=== PATIENT | male | born 1950 | race Caucasian/White ===

== ENCOUNTER 2021-02-04 15:51 | Emergency (ER) | payer MEDICARE ==
[2021-02-04 15:58] VITALS: TEMP 98.1
--- NOTE | 2021-02-04 16:15 | ED ---
General Adult HPI - General Chief complaint: Abdominal Pain Stated complaint: kidney problems Time Seen by Provider: 02/04/21 16:00 Source: patient Mode of arrival: wheelchair Limitations: no limitations - History of Present Illness Initial comments: Dictation was produced using [facility] dictation software. please excuse any grammatical, word or spelling errors. Chief Complaint: This 70-year-old male presents to the emergency department for lower back and bilateral flank pain. History of Present Illness: 70-year-old male presents emergency department for lower back and bilateral flank pain. Patient states that he was at [facility] emergency room for the same complaint one week ago. States that he had imaging done and he was found to have small kidney stones. Patient states that he has pain that goes across his bilateral lower flank areas and lower back. He's been having urinary urgency. Patient has history of prostate disease. Patient also takes Lasix for his heart failure. Patient states that the urge to be has been bothersome because it keeps him awake at night. Is not able to get more than 1-2 hours of straight sleep because he feels like he needs to get up to urinate. Patient denies any nausea. No vomiting. Pain is nonradiating to the groin. Denies any anterior abdominal pain. States that he has history of abdominal aortic aneurysm measuring 3.5 cm. Denies any numbness tingling paresthesias to the lower extremities. The ROS documented in this emergency department record has been reviewed and confirmed by me. Those systems with pertinent positive or negative responses have been documented in the HPI. All other systems are other negative and/or noncontributory. PHYSICAL EXAM: General Impression: Alert and oriented x3, not in acute distress HEENT: Normocephalic atraumatic, extra-ocular movements intact, pupils equal and reactive to light bilaterally, mucous membranes moist. Cardiovascular: Heart regular rate and rhythm Chest: Able to complete full sentences, no retractions, no tachypnea Abdomen: abdomen soft, non-tender, non-distended, no organomegaly Musculoskeletal: Pulses present and equal in all extremities, no peripheral edema Motor: no focal deficits noted Neurological: CN II-XII grossly intact, no focal motor or sensory deficits noted Skin: Intact with no visualized rashes Psych: Normal affect and mood ED course: 70-year-old well-appearing male with multiple comorbid disease presents to the emergency department for bilateral flank pain, lower back pain and urinary urgency. Vital signs upon arrival are within acceptable limits. EKG interpretation: Ventricular rate 47, A. fib, QRS 90, QTC 396. No TN prolongation, no QTC prolongation, no ST or T-wave changes noted. No old EKG for comparison. Overall, this EKG is unremarkable Laboratory evaluation obtained. CBC, metabolic panel is unremarkable. Urinalysis is negative. Ultrasound the kidneys urinary bladder shows no acute processes. Bladder scan showed less than 150 mL of urine postvoid. Patient reevaluated at bedside. Seems to be in stable medical condition. He is well- appearing. Patient's urinary urgency is likely from his Lasix. 640 mg by mouth daily. Patient reevaluated bedside at 6:15 PM findings stable medical condition. He is sitting comfortably on the stretcher. He does not appear to be in any significant distress. Results of patient's lab and imaging studies were told to the patient. At this point there are no high-risk features noted. Patient's well-appearing. He is told to follow-up with his primary care doctor. Patient given some by mouth analgesia to help him sleep tonight for some mild back discomfort. Patient's back pain is likely musculoskeletal - Related Data Home Medications Medication Instructions Recorded Confirmed Aspirin EC [Ecotrin Low Dose] 81 mg PO DAILY 02/04/21 02/04/21 Cholecalciferol [Vitamin D3 (25 25 mcg PO DAILY 02/04/21 02/04/21 Mcg = 1000 Iu)] Ferrous Sulfate [Feosol] 325 mg PO DAILY 02/04/21 02/04/21 Furosemide [Lasix] 40 mg PO DAILY 02/04/21 02/04/21 Insulin Glargine,Hum.rec.anlog 20 unit SQ DAILY 02/04/21 02/04/21 [Lantus Solostar] Insulin Lispro [humaLOG Kwikpen] 10 unit SQ AC-TID PRN 02/04/21 02/04/21 Metoprolol Tartrate [Lopressor] 25 mg PO DAILY 02/04/21 02/04/21 Potassium Chloride ER [K-Dur 10] 10 meq PO DAILY 02/04/21 02/04/21 Ramipril [Altace] 10 mg PO BID 02/04/21 02/04/21 Simvastatin [Zocor] 40 mg PO DAILY 02/04/21 02/04/21 Tamsulosin HCl [Flomax] 0.4 mg PO BID 02/04/21 02/04/21 Warfarin [Coumadin] 2.5 mg PO MOWEFR 02/04/21 02/04/21 Warfarin [Coumadin] 5 mg PO SUTUTHFRSA 02/04/21 02/04/21 amLODIPine [Norvasc] 10 mg PO DAILY 02/04/21 02/04/21 metFORMIN HCL [Glucophage] 850 mg PO BID 02/04/21 02/04/21 Previous Rx's Medication Instructions Recorded HYDROcodone/APAP 5-325MG [[place] 1 tab PO Q6HR PRN 3 Days #12 tab 02/04/21 5-325] Allergies Allergy/AdvReac Type Severity Reaction Status Date / Time No Known Allergies Allergy Verified 02/04/21 17:09 Review of Systems ROS Statement: Those systems with pertinent positive or pertinent negative responses have been documented in the HPI. ROS Other: All systems not noted in ROS Statement are negative. Past Medical History Past Medical History: Atrial Fibrillation, Heart Failure, COPD, Hyperlipidemia, Hypertension History of Any Multi-Drug Resistant Organisms: None Reported Past Surgical History: Joint Replacement Past Psychological History: No Psychological Hx Reported Smoking Status: Current every day smoker Past Alcohol Use History: None Reported Past Drug Use History: None Reported General Exam Limitations: no limitations Course Vital Signs 02/04/21 02/04/21 15:55 16:34 Temperature 98.1 F Pulse Rate 50 L 47 L Respiratory 16 18 Rate Blood Pressure 182/69 145/67 O2 Sat by Pulse 96 96 Oximetry Medical Decision Making - Lab Data Result diagrams: 02/04/21 16:17 02/04/21 16:17 Lab Results 02/04/21 02/04/21 02/04/21 Range/Units 16:17 16:17 16:17 WBC 6.7 (3.8-10.6) k/uL RBC 5.93 H (4.30-5.90) m/uL Hgb 18.1 H (13.0-17.5) gm/dL Hct 54.5 H (39.0-53.0) % MCV 91.8 (80.0-100.0) fL MCH 30.6 (25.0-35.0) pg MCHC 33.3 (31.0-37.0) g/dL RDW 15.5 (11.5-15.5) % Plt Count 168 (150-450) k/uL MPV 7.4 Neutrophils % 74 % Lymphocytes % 17 % Monocytes % 5 % Eosinophils % 2 % Basophils % 1 % Neutrophils # 4.9 (1.3-7.7) k/uL Lymphocytes # 1.1 (1.0-4.8) k/uL Monocytes # 0.3 (0-1.0) k/uL Eosinophils # 0.1 (0-0.7) k/uL Basophils # 0.1 (0-0.2) k/uL Sodium 139 (137-145) mmol/L Potassium 5.0 (3.5-5.1) mmol/L Chloride 110 H (98-107) mmol/L Carbon Dioxide 21 L (22-30) mmol/L Anion Gap 8 mmol/L BUN 33 H (9-20) mg/dL Creatinine 1.37 H (0.66-1.25) mg/dL Est GFR (CKD-EPI)AfAm 60 (>60 ml/min/1.73 sqM) Est GFR (CKD-EPI)NonAf 52 (>60 ml/min/1.73 sqM) Glucose 134 H (74-99) mg/dL Calcium 10.1 (8.4-10.2) mg/dL Total Bilirubin 0.9 (0.2-1.3) mg/dL AST 23 (17-59) U/L ALT 12 (4-49) U/L Alkaline Phosphatase 92 (38-126) U/L Total Protein 7.0 (6.3-8.2) g/dL Albumin 4.2 (3.5-5.0) g/dL Lipase 177 (23-300) U/L Urine Color Yellow Urine Appearance Clear (Clear) Urine pH 5.5 (5.0-8.0) Ur Specific [place] 1.018 (1.001-1.035) Urine Protein 2+ H (Negative) Urine Glucose (UA) Trace H (Negative) Urine Ketones Negative (Negative) Urine Blood Trace H (Negative) Urine Nitrite Negative (Negative) Urine Bilirubin Negative (Negative) Urine Urobilinogen <2.0 (<2.0) mg/dL Ur Leukocyte Esterase Negative (Negative) Urine RBC 1 (0-5) /hpf Urine WBC <1 (0-5) /hpf Urine Mucus Rare H (None) /hpf Disposition Clinical Impression: Back pain Disposition: HOME SELF-CARE Condition: Good Instructions (If sedation given, give patient instructions): Low Back Strain (ED) Prescriptions: HYDROcodone/APAP 5-325MG [[place] 5-325] 1 tab PO Q6HR PRN 3 Days #12 tab PRN Reason: Severe Pain Is patient prescribed a controlled substance at d/c from ED?: Yes Referrals: Carol Ahn MD [Primary Care Provider] - 1-2 days
[2021-02-04 16:36] VITALS: RESP 18
[2021-02-04 16:44] LABS: Basophils # (A) 0.1 k/uL (0-0.2); Basophils % (A) 1 %; Eosinophils # (A) 0.1 k/uL (0-0.7); Eosinophils % (A) 2 %; HCT 54.5 % (39.0-53.0); HGB 18.1 gm/dL (13.0-17.5); Lymphocytes # (A) 1.1 k/uL (1.0-4.8); Lymphocytes % (A) 17 %; MCH 30.6 pg (25.0-35.0); MCHC 33.3 g/dL (31.0-37.0); MCV 91.8 fL (80.0-100.0); Mean Platelet Volume 7.4; Monocytes # (A) 0.3 k/uL (0-1.0); Monocytes % (A) 5 %; Neutrophils # (A) 4.9 k/uL (1.3-7.7); Neutrophils % (A) 74 %; Platelet Count 168 k/uL (150-450); RBC 5.93 m/uL (4.30-5.90); RDW 15.5 % (11.5-15.5); WBC 6.7 k/uL (3.8-10.6)
[2021-02-04 16:48] LABS: Appearance,Urine Clear (Clear); Bilirubin,Urine Negative (Negative); Blood,Urine Trace (Negative); Color,Urine Yellow; Glucose,Urine (UA) Trace (Negative); Ketones,Urine Negative (Negative); Leukocyte Esterase,Urine Negative (Negative); Mucus,Urine Rare /hpf; Nitrite,Urine Negative (Negative); PH, Urine 5.5 (5.0-8.0); Protein,Urine 2+ (Negative); RBC,Urine 1 /hpf (0-5); Specific Gravity,Urine 1.018 (1.001-1.035); Urobilinogen,Urine <2.0 mg/dL (<2.0); WBC,Urine <1 /hpf (0-5)
[2021-02-04 16:56] LABS: Albumin 4.2 g/dL (3.5-5.0); Calcium 10.1 mg/dL (8.4-10.2); Total Bilirubin 0.9 mg/dL (0.2-1.3)
--- NOTE | 2021-02-04 18:02 | US ---
EXAMINATION TYPE: US kidneys/renal and bladder DATE OF EXAM: 02/04/2021 COMPARISON: NONE CLINICAL HISTORY: flank pain. Flank pain EXAM MEASUREMENTS: Right Kidney: 12.0 x 5.1 x 4.3 cm Left Kidney: 12.9 x 4.5 x 4.1 cm Right Kidney: Cystic area lower pole 1.8 x 1.7 x 1.5 cm. Left Kidney: Cystic area lower pole 1.4 x 1.2 x 1.4 cm mid pole 1.9 x 1.8 x 2.4 cm. Bladder: Not full Bilateral Jets seen: No IMPRESSION: There are renal cortical cysts. No evidence of a solid renal mass. No hydronephrosis. Urinary bladder not evaluated. Bladder was empty.
[2021-02-04] MEDS ORDERED: ACET/COD 300 MG/30 MG STARTER PACK 6 TAB BTL PO STA (18:50)
[2021-02-04 18:52] VITALS: BP 137/93; PULSE 44
== END 2021-02-04 19:03 | disposition home or self-care (01) ==
LOC: EC 15:51
DX: M54.5 Low back pain (principal); R10.9 Unspecified abdominal pain; E78.5 Hyperlipidemia, unspecified; F17.200 Nicotine dependence, unspecified, uncomplicated; I11.0 Hypertensive heart disease with heart failure; I50.9 Heart failure, unspecified; J44.9 Chronic obstructive pulmonary disease, unspecified; I48.91 Unspecified atrial fibrillation; Z79.01 Long term (current) use of anticoagulants; Z79.82 Long term (current) use of aspirin; Z79.899 Other long term (current) drug therapy
CPT/HCPCS: 36415; 51798; 76770; 80053; 81001; 83690; 85025; 93005; 99284

== ENCOUNTER 2021-02-25 21:15 | Emergency (ER) | payer MEDICARE ==
[2021-02-25 21:32] VITALS: TEMP 99.3
--- NOTE | 2021-02-25 21:50 | ED ---
SOB HPI - General Chief Complaint: Shortness of Breath Stated Complaint: SOB Time Seen by Provider: 02/25/21 21:26 Source: patient Mode of arrival: ambulatory Limitations: no limitations - History of Present Illness Initial Comments: 70-year-old male patient with multiple medical problems presents to the emergency department today for evaluation of shortness of breath. Patient states that worsening over the last couple of days. States that he has been unable to sleep. States he does have a cough with sputum production. He is unsure of the color. Denies any hemoptysis. States he has had fevers over the last couple of days. Denies any increase in leg swelling. Does admit that he did stop taking his Lasix 2 days ago because it makes him go to the bathroom all night long. Denies any chest pain. States he has had some palpitations so this is not unusual for him with his history of atrial fibrillation. Denies nausea or vomiting. Denies dizziness or weakness. Patient denies any recent rash, abdominal pain, diarrhea, constipation, back pain, numbness, tingling, hematuria, dysuria, urinary urgency, urinary frequency, headache, visual c hanges, or any other complaints. - Related Data Home Medications Medication Instructions Recorded Confirmed Aspirin EC [Ecotrin Low Dose] 81 mg PO DAILY 02/04/21 02/25/21 Cholecalciferol [Vitamin D3 (25 25 mcg PO DAILY 02/04/21 02/25/21 Mcg = 1000 Iu)] Ferrous Sulfate [Feosol] 325 mg PO DAILY 02/04/21 02/25/21 Furosemide [Lasix] 40 mg PO DAILY 02/04/21 02/25/21 Insulin Glargine,Hum.rec.anlog 15 unit SQ DAILY 02/04/21 02/25/21 [Lantus Solostar] Insulin Lispro [humaLOG Kwikpen] 10 unit SQ AC-TID PRN 02/04/21 02/25/21 Potassium Chloride ER [K-Dur 10] 10 meq PO DAILY 02/04/21 02/25/21 Ramipril [Altace] 10 mg PO BID 02/04/21 02/25/21 Simvastatin [Zocor] 40 mg PO DAILY 02/04/21 02/25/21 Tamsulosin HCl [Flomax] 0.4 mg PO BID 02/04/21 02/25/21 Warfarin [Coumadin] 2.5 mg PO MOWEFR 02/04/21 02/25/21 Warfarin [Coumadin] 5 mg PO SUTUTHSA 02/04/21 02/25/21 amLODIPine [Norvasc] 10 mg PO DAILY 02/04/21 02/25/21 metFORMIN HCL [Glucophage] 850 mg PO BID 02/04/21 02/25/21 Metoprolol Succinate (ER) [Toprol 25 mg PO DAILY 02/25/21 02/25/21 Xl] Allergies Allergy/AdvReac Type Severity Reaction Status Date / Time No Known Allergies Allergy Verified 02/25/21 22:56 Review of Systems ROS Statement: Those systems with pertinent positive or pertinent negative responses have been documented in the HPI. ROS Other: All systems not noted in ROS Statement are negative. Past Medical History Past Medical History: Atrial Fibrillation, Heart Failure, COPD, Hyperlipidemia, Hypertension History of Any Multi-Drug Resistant Organisms: None Reported Past Surgical History: Joint Replacement Past Psychological History: No Psychological Hx Reported Smoking Status: Current every day smoker Past Alcohol Use History: None Reported Past Drug Use History: None Reported General Exam Limitations: no limitations General appearance: alert, in no apparent distress, other (This is a well- developed, well-nourished adult male patient in no acute distress. Vital signs upon presentation are temperature 99.3F, pulse 69, respirations 20, blood pressure 179/67, pulse ox 95% on room air.) ENT exam: Present: normal exam, normal oropharynx, mucous membranes moist Respiratory exam: Present: normal lung sounds bilaterally. Absent: respiratory distress, wheezes, rales, rhonchi, stridor Cardiovascular Exam: Present: regular rate, normal rhythm, normal heart sounds. Absent: systolic murmur, diastolic murmur, rubs, gallop, clicks GI/Abdominal exam: Present: soft, normal bowel sounds. Absent: distended, tenderness, guarding, rebound, rigid Neurological exam: Present: alert, oriented X3, CN II-XII intact Psychiatric exam: Present: normal affect, normal mood Skin exam: Present: warm, dry, intact, normal color. Absent: rash Course Vital Signs 02/25/21 02/25/21 02/25/21 21:26 21:49 22:12 Temperature 99.3 F Pulse Rate 69 61 Pulse Rate [ 75 [employer] ] Respiratory 20 20 20 Rate Blood Pressure 179/67 182/91 O2 Sat by Pulse 95 95 Oximetry 02/25/21 23:11 Temperature Pulse Rate 60 Pulse Rate [ Information [employer] ] Respiratory 18 Rate Blood Pressure 168/72 O2 Sat by Pulse 96 Oximetry Medical Decision Making - Medical Decision Making 70-year-old male patient presents to the emergency department today for evaluation of increased shortness of breath over the last couple of days. Physical examination reveals clear equal lung sounds. He is in no respiratory distress. Labs reviewed and did reveal white blood cell count is 6.9. INR is 2.1 which is therapeutic for him. Carbon dioxide was 20. BUN 33, creatinine 1.35 which is consistent with his usual kidney function. Lactic acid was 2.6. Troponin is negative. BNP is 949. Urinalysis shows no sign of infection. He did test negative for COVID-19. Chest x-ray showed no acute abnormalities. I did discuss findings and results with the patient. He will be discharged home. He is instructed to repeat start his Lasix his recommended dose. Instructed to follow-up with his primary care physician for recheck in 1-2 days. Return parameters discussed in detail. He verbalizes understanding and agrees with this plan. Tylenol codeine started back was given for his chronic back pain. Case discussed with my attending Dr. Shen. - Lab Data Result diagrams: 02/25/21 22:03 02/25/21 22:03 Lab Results 02/25/21 02/25/21 02/25/21 Range/Units 21:49 22:03 22:03 WBC 6.9 (3.8-10.6) k/uL RBC 5.83 (4.30-5.90) m/uL Hgb 17.9 H (13.0-17.5) gm/dL Hct 54.6 H (39.0-53.0) % MCV 93.6 (80.0-100.0) fL MCH 30.7 (25.0-35.0) pg MCHC 32.7 (31.0-37.0) g/dL RDW 15.4 (11.5-15.5) % Plt Count 134 L (150-450) k/uL MPV 7.3 Neutrophils % 69 % Lymphocytes % 17 % Monocytes % 8 % Eosinophils % 3 % Basophils % 1 % Neutrophils # 4.7 (1.3-7.7) k/uL Lymphocytes # 1.2 (1.0-4.8) k/uL Monocytes # 0.6 (0-1.0) k/uL Eosinophils # 0.2 (0-0.7) k/uL Basophils # 0.1 (0-0.2) k/uL Hypochromasia Slight PT 20.5 H (9.0-12.0) sec INR 2.1 H (<1.2) APTT 29.4 (22.0-30.0) sec Sodium (137-145) mmol/L Potassium (3.5-5.1) mmol/L Chloride (98-107) mmol/L Carbon Dioxide (22-30) mmol/L Anion Gap mmol/L BUN (9-20) mg/dL Creatinine (0.66-1.25) mg/dL Est GFR (CKD-EPI)AfAm (>60 ml/min/1.73 sqM) Est GFR (CKD-EPI)NonAf (>60 ml/min/1.73 sqM) Glucose (74-99) mg/dL Plasma Lactic Acid Ezekiel (0.7-2.0) mmol/L Calcium (8.4-10.2) mg/dL Magnesium (1.6-2.3) mg/dL Total Bilirubin (0.2-1.3) mg/dL AST (17-59) U/L ALT (4-49) U/L Alkaline Phosphatase (38-126) U/L Troponin I (0.000-0.034) ng/mL NT-Pro-B Natriuret Pep pg/mL Total Protein (6.3-8.2) g/dL Albumin (3.5-5.0) g/dL Urine Color Urine Appearance (Clear) Urine pH (5.0-8.0) Ur Specific [place] (1.001-1.035) Urine Protein (Negative) Urine Glucose (UA) (Negative) Urine Ketones (Negative) Urine Blood (Negative) Urine Nitrite (Negative) Urine Bilirubin (Negative) Urine Urobilinogen (<2.0) mg/dL Ur Leukocyte Esterase (Negative) Urine RBC (0-5) /hpf Urine WBC (0-5) /hpf Ur Squamous Epith Cells (0-4) /hpf Amorphous Sediment (None) /hpf Urine Bacteria (None) /hpf Hyaline Casts (0-2) /lpf Urine Mucus (None) /hpf Coronavirus (PCR) Not Detected (Not Detectd) 02/25/21 02/25/21 02/25/21 Range/Units 22:03 22:03 22:03 WBC (3.8-10.6) k/uL RBC (4.30-5.90) m/uL Hgb (13.0-17.5) gm/dL Hct (39.0-53.0) % MCV (80.0-100.0) fL MCH (25.0-35.0) pg MCHC (31.0-37.0) g/dL RDW (11.5-15.5) % Plt Count (150-450) k/uL MPV Neutrophils % % Lymphocytes % % Monocytes % % Eosinophils % % Basophils % % Neutrophils # (1.3-7.7) k/uL Lymphocytes # (1.0-4.8) k/uL Monocytes # (0-1.0) k/uL Eosinophils # (0-0.7) k/uL Basophils # (0-0.2) k/uL Hypochromasia PT (9.0-12.0) sec INR (<1.2) APTT (22.0-30.0) sec Sodium 142 (137-145) mmol/L Potassium 5.0 (3.5-5.1) mmol/L Chloride 111 H (98-107) mmol/L Carbon Dioxide 20 L (22-30) mmol/L Anion Gap 11 mmol/L BUN 33 H (9-20) mg/dL Creatinine 1.35 H (0.66-1.25) mg/dL Est GFR (CKD-EPI)AfAm 61 (>60 ml/min/1.73 sqM) Est GFR (CKD-EPI)NonAf 52 (>60 ml/min/1.73 sqM) Glucose 108 H (74-99) mg/dL Plasma Lactic Acid Ezekiel 2.6 H* (0.7-2.0) mmol/L Calcium 10.1 (8.4-10.2) mg/dL Magnesium 1.8 (1.6-2.3) mg/dL Total Bilirubin 0.8 (0.2-1.3) mg/dL AST 24 (17-59) U/L ALT 12 (4-49) U/L Alkaline Phosphatase 73 (38-126) U/L Troponin I <0.012 (0.000-0.034) ng/mL NT-Pro-B Natriuret Pep pg/mL Total Protein 6.6 (6.3-8.2) g/dL Albumin 4.0 (3.5-5.0) g/dL Urine Color Urine Appearance (Clear) Urine pH (5.0-8.0) Ur Specific [place] (1.001-1.035) Urine Protein (Negative) Urine Glucose (UA) (Negative) Urine Ketones (Negative) Urine Blood (Negative) Urine Nitrite (Negative) Urine Bilirubin (Negative) Urine Urobilinogen (<2.0) mg/dL Ur Leukocyte Esterase (Negative) Urine RBC (0-5) /hpf Urine WBC (0-5) /hpf Ur Squamous Epith Cells (0-4) /hpf Amorphous Sediment (None) /hpf Urine Bacteria (None) /hpf Hyaline Casts (0-2) /lpf Urine Mucus (None) /hpf Coronavirus (PCR) (Not Detectd) 02/25/21 02/25/21 Range/Units 22:03 23:15 WBC (3.8-10.6) k/uL RBC (4.30-5.90) m/uL Hgb (13.0-17.5) gm/dL Hct (39.0-53.0) % MCV (80.0-100.0) fL MCH (25.0-35.0) pg MCHC (31.0-37.0) g/dL RDW (11.5-15.5) % Plt Count (150-450) k/uL MPV Neutrophils % % Lymphocytes % % Monocytes % % Eosinophils % % Basophils % % Neutrophils # (1.3-7.7) k/uL Lymphocytes # (1.0-4.8) k/uL Monocytes # (0-1.0) k/uL Eosinophils # (0-0.7) k/uL Basophils # (0-0.2) k/uL Hypochromasia PT (9.0-12.0) sec INR (<1.2) APTT (22.0-30.0) sec Sodium (137-145) mmol/L Potassium (3.5-5.1) mmol/L Chloride (98-107) mmol/L Carbon Dioxide (22-30) mmol/L Anion Gap mmol/L BUN (9-20) mg/dL Creatinine (0.66-1.25) mg/dL Est GFR (CKD-EPI)AfAm (>60 ml/min/1.73 sqM) Est GFR (CKD-EPI)NonAf (>60 ml/min/1.73 sqM) Glucose (74-99) mg/dL Plasma Lactic Acid [place] (0.7-2.0) mmol/L Calcium (8.4-10.2) mg/dL Magnesium (1.6-2.3) mg/dL Total Bilirubin (0.2-1.3) mg/dL AST (17-59) U/L ALT (4-49) U/L Alkaline Phosphatase (38-126) U/L Troponin I (0.000-0.034) ng/mL NT-Pro-B Natriuret Pep 949 pg/mL Total Protein (6.3-8.2) g/dL Albumin (3.5-5.0) g/dL Urine Color Yellow Urine Appearance Clear (Clear) Urine pH 5.5 (5.0-8.0) Ur Specific [place] 1.020 (1.001-1.035) Urine Protein 3+ H (Negative) Urine Glucose (UA) 1+ H (Negative) Urine Ketones Negative (Negative) Urine Blood Small H (Negative) Urine Nitrite Negative (Negative) Urine Bilirubin Negative (Negative) Urine Urobilinogen <2.0 (<2.0) mg/dL Ur Leukocyte Esterase Negative (Negative) Urine RBC 3 (0-5) /hpf Urine WBC <1 (0-5) /hpf Ur Squamous Epith Cells <1 (0-4) /hpf Amorphous Sediment Rare H (None) /hpf Urine Bacteria Rare H (None) /hpf Hyaline Casts 19 H (0-2) /lpf Urine Mucus Rare H (None) /hpf Coronavirus (PCR) (Not Detectd) - Radiology Data Radiology results: report reviewed, image reviewed Two-view x-ray of the chest is obtained. Report was reviewed in its entirety. Impression by Dr. Tobar shows cardiomegaly. Mild pulmonary fibrosis. No gross or failure. Disposition Clinical Impression: Shortness of breath Disposition: HOME SELF-CARE Condition: Good Instructions (If sedation given, give patient instructions): Shortness of Breath (ED) Additional Instructions: Restart your Lasix. Follow-up with your primary care physician for recheck in 1-2 days. Return to the emergency department for any new, worsening, or concerning symptoms. Is patient prescribed a controlled substance at d/c from ED?: No Referrals: Carol Ahn MD [Primary Care Provider] - 1-2 days Time of Disposition: 23:43
--- NOTE | 2021-02-25 22:14 | XR ---
EXAMINATION TYPE: XR chest 2V DATE OF EXAM: 02/25/2021 COMPARISON: NONE HISTORY: Short of breath TECHNIQUE: 2 views FINDINGS: Heart is enlarged. There is coarsening of the lung markings. There is no gross heart failur e. Bony thorax is intact. There is no pleural effusion. There are chest leads. IMPRESSION: Cardiomegaly. Mild pulmonary fibrosis. No gross heart failure.
[2021-02-25 22:21] LABS: Basophils # (A) 0.1 k/uL (0-0.2); Basophils % (A) 1 %; Eosinophils # (A) 0.2 k/uL (0-0.7); Eosinophils % (A) 3 %; HCT 54.6 % (39.0-53.0); HGB 17.9 gm/dL (13.0-17.5); Hypochromasia Slight; Lymphocytes # (A) 1.2 k/uL (1.0-4.8); Lymphocytes % (A) 17 %; MCH 30.7 pg (25.0-35.0); MCHC 32.7 g/dL (31.0-37.0); MCV 93.6 fL (80.0-100.0); Mean Platelet Volume 7.3; Monocytes # (A) 0.6 k/uL (0-1.0); Monocytes % (A) 8 %; Neutrophils # (A) 4.7 k/uL (1.3-7.7); Neutrophils % (A) 69 %; Platelet Count 134 k/uL (150-450); RBC 5.83 m/uL (4.30-5.90); RDW 15.4 % (11.5-15.5); WBC 6.9 k/uL (3.8-10.6)
[2021-02-25 22:33] LABS: Calcium 10.1 mg/dL (8.4-10.2); Magnesium 1.8 mg/dL (1.6-2.3); Total Bilirubin 0.8 mg/dL (0.2-1.3); Total Protein 6.6 g/dL (6.3-8.2)
[2021-02-25 22:35] LABS: INR 2.1 (<1.2); Partial Thromboplastin Time 29.4 sec (22.0-30.0); Prothrombin Time 20.5 sec (9.0-12.0)
[2021-02-25 23:15] VITALS: BP 168/72; PULSE 60; RESP 18
[2021-02-25 23:42] LABS: Amorphous Sediment,Urine Rare /hpf; Appearance,Urine Clear (Clear); Bacteria,Urine Rare /hpf; Bilirubin,Urine Negative (Negative); Blood,Urine Small (Negative); Color,Urine Yellow; Glucose,Urine (UA) 1+ (Negative); Hyaline Casts,Urine 19 /lpf (0-2); Ketones,Urine Negative (Negative); Leukocyte Esterase,Urine Negative (Negative); Mucus,Urine Rare /hpf; Nitrite,Urine Negative (Negative); PH, Urine 5.5 (5.0-8.0); Protein,Urine 3+ (Negative); RBC,Urine 3 /hpf (0-5); Squamous Epithelial Cell,Urine <1 /hpf (0-4); Urobilinogen,Urine <2.0 mg/dL (<2.0); WBC,Urine <1 /hpf (0-5)
[2021-02-25] MEDS ORDERED: ACET/COD 300 MG/30 MG STARTER PACK 6 TAB BTL PO STA (23:45)
== END 2021-02-25 23:59 | disposition home or self-care (01) ==
LOC: EC 21:15
DX: R06.02 Shortness of breath (principal); R05 Cough; F17.200 Nicotine dependence, unspecified, uncomplicated; I11.0 Hypertensive heart disease with heart failure; J44.9 Chronic obstructive pulmonary disease, unspecified; I50.9 Heart failure, unspecified; I48.91 Unspecified atrial fibrillation; E78.5 Hyperlipidemia, unspecified; Z20.822 Contact with and (suspected) exposure to COVID-19; Z79.82 Long term (current) use of aspirin; Z79.899 Other long term (current) drug therapy
CPT/HCPCS: 36415; 71046; 80053; 81001; 83605; 83735; 83880; 84484; 85025; 85610; 85730; 87040; 87635; 93005; 99285

== ENCOUNTER 2021-04-01 18:20 | Emergency (ER) | payer MEDICARE ==
[2021-04-01 18:34] VITALS: BP 149/76
--- NOTE | 2021-04-01 18:51 | ED ---
General Adult HPI - General Chief complaint: Weakness Stated complaint: abd pain, weakness & SOB Time Seen by Provider: 04/01/21 18:37 Source: patient Mode of arrival: wheelchair Limitations: no limitations - History of Present Illness Initial comments: Dictation was produced using [employer] dictation software. please excuse any grammatical, word or spelling errors. Chief Complaint: 71-year-old male presents to the emergency department for cough, shortness of breath and abdominal pain History of Present Illness: 71-year-old male who lives at home by himself. He states that he has no trouble taking care of himself. He states that over the last couple days she's been having increased productive cough, shortness of breath and generalized weakness. Patient states that also he has some mild abdominal pain. He states that he gets alternating bouts of diarrhea and constipation. States that he does not have any abdominal pain currently. Patient states he has a history of 3.5 cm aneurysm. Denies any fever. States his cough is white. Denies any chest pain. Patient is waiting to be evaluated and treated for sleep apnea. States that he is having difficulty sleeping the last couple days. The ROS documented in this emergency department record has been reviewed and confirmed by me. Those systems with pertinent positive or negative responses have been documented in the HPI. All other systems are other negative and/or noncontributory. PHYSICAL EXAM: General Impression: Alert and oriented x3, not in acute distress HEENT: Normocephalic atraumatic, extra-ocular movements intact, pupils equal and reactive to light bilaterally, mucous membranes moist. Cardiovascular: Heart regular rate and rhythm Chest: Able to complete full sentences, no retractions, no tachypnea, lungs clear to auscultation bilaterally Abdomen: abdomen soft, non-tender, non-distended, no organomegaly Musculoskeletal: Pulses present and equal in all extremities, no peripheral edema Motor: no focal deficits noted Neurological: CN II-XII grossly intact, no focal motor or sensory deficits noted Skin: Intact with no visualized rashes Psych: Normal affect and mood ED course: 71-year-old male presents emergency department for multiple compl aints. His complaints include respiratory infectious symptoms, abdominal pain concerning for constipation and insomnia. As upon arrival are within acceptable limits. Patient's well-appearing at the bedside. His lungs are clear to auscultation bilaterally. EKG interpretation: Ventricular rate 50, A. fib, QRS 90, QTC 418. No WA prolongation, no QTC prolongation, no ST or T-wave changes noted. EKG compared to 02/25/2021 showing no changes. Overall, this EKG is unremarkable Laboratory evaluation obtained. Hemoconcentration. Patient is a COPD or. Coag panel shows an of 2.0. Metabolic panel within acceptable limits. Patient positive for coronavirus. Patient's symptoms have been less than 10 days. He meets criteria for monoclonal antibody administration. He is not hypoxic and is vaccinated. Ambulatory pulse ox is 98%. Patient will be given monoclonal antibody infusion, observed for one hour and discharged. - Related Data Home Medications Medication Instructions Recorded Confirmed Aspirin EC [Ecotrin Low Dose] 81 mg PO DAILY 02/04/21 02/25/21 Cholecalciferol [Vitamin D3 (25 25 mcg PO DAILY 02/04/21 02/25/21 Mcg = 1000 Iu)] Ferrous Sulfate [Feosol] 325 mg PO DAILY 02/04/21 02/25/21 Furosemide [Lasix] 40 mg PO DAILY 02/04/21 02/25/21 Insulin Glargine,Hum.rec.anlog 15 unit SQ DAILY 02/04/21 02/25/21 [Lantus Solostar] Insulin Lispro [humaLOG Kwikpen] 10 unit SQ AC-TID PRN 02/04/21 02/25/21 Potassium Chloride ER [K-Dur 10] 10 meq PO DAILY 02/04/21 02/25/21 Ramipril [Altace] 10 mg PO BID 02/04/21 02/25/21 Simvastatin [Zocor] 40 mg PO DAILY 02/04/21 02/25/21 Tamsulosin HCl [Flomax] 0.4 mg PO BID 02/04/21 02/25/21 Warfarin [Coumadin] 2.5 mg PO MOWEFR 02/04/21 02/25/21 Warfarin [Coumadin] 5 mg PO SUTUTHSA 02/04/21 02/25/21 amLODIPine [Norvasc] 10 mg PO DAILY 02/04/21 02/25/21 metFORMIN HCL [Glucophage] 850 mg PO BID 02/04/21 02/25/21 Metoprolol Succinate (ER) [Toprol 25 mg PO DAILY 02/25/21 02/25/21 Xl] Allergies Allergy/AdvReac Type Severity Reaction Status Date / Time No Known Allergies Allergy Verified 04/01/21 18:31 Review of Systems ROS Statement: Those systems with pertinent positive or pertinent negative responses have been documented in the HPI. ROS Other: All systems not noted in ROS Statement are negative. Past Medical History Past Medical History: Atrial Fibrillation, Heart Failure, COPD, Hyperlipidemia, Hypertension History of Any Multi-Drug Resistant Organisms: None Reported Past Surgical History: Joint Replacement Past Psychological History: No Psychological Hx Reported Smoking Status: Current every day smoker Past Alcohol Use History: None Reported Past Drug Use History: None Reported General Exam Limitations: no limitations Course Vital Signs 04/01/21 18:31 Temperature 98.6 F Pulse Rate 70 Respiratory 18 Rate Blood Pressure 149/76 O2 Sat by Pulse 97 Oximetry Medical Decision Making - Lab Data Result diagrams: 04/01/21 19:03 04/01/21 19:03 Lab Results 04/01/21 04/01/21 04/01/21 Range/Units 19:03 19:03 19:03 WBC 3.9 (3.8-10.6) k/uL RBC 5.94 H (4.30-5.90) m/uL Hgb 17.9 H (13.0-17.5) gm/dL Hct 54.8 H (39.0-53.0) % MCV 92.2 (80.0-100.0) fL MCH 30.1 (25.0-35.0) pg MCHC 32.6 (31.0-37.0) g/dL RDW 14.2 (11.5-15.5) % Plt Count 102 L (150-450) k/uL MPV 7.7 Neutrophils % 60 % Lymphocytes % 24 % Monocytes % 10 % Eosinophils % 4 % Basophils % 1 % Neutrophils # 2.3 (1.3-7.7) k/uL Lymphocytes # 0.9 L (1.0-4.8) k/uL Monocytes # 0.4 (0-1.0) k/uL Eosinophils # 0.2 (0-0.7) k/uL Basophils # 0.0 (0-0.2) k/uL PT (9.0-12.0) sec INR (<1.2) APTT (22.0-30.0) sec Sodium 141 (137-145) mmol/L Potassium 5.0 (3.5-5.1) mmol/L Chloride 110 H (98-107) mmol/L Carbon Dioxide 22 (22-30) mmol/L Anion Gap 9 mmol/L BUN 27 H (9-20) mg/dL Creatinine 1.39 H (0.66-1.25) mg/dL Est GFR (CKD-EPI)AfAm 58 (>60 ml/min/1.73 sqM) Est GFR (CKD-EPI)NonAf 50 (>60 ml/min/1.73 sqM) Glucose 94 (74-99) mg/dL Calcium 9.5 (8.4-10.2) mg/dL Magnesium 1.8 (1.6-2.3) mg/dL Total Bilirubin 0.9 (0.2-1.3) mg/dL AST 27 (17-59) U/L ALT 16 (4-49) U/L Alkaline Phosphatase 92 (38-126) U/L Troponin I (0.000-0.034) ng/mL NT-Pro-B Natriuret Pep pg/mL Total Protein 6.7 (6.3-8.2) g/dL Albumin 3.7 (3.5-5.0) g/dL Lipase 173 (23-300) U/L Influenza Type A (PCR) Not Detected (Not Detectd) Influenza Type B (PCR) Not Detected (Not Detectd) RSV (PCR) Not Detected (Not Detectd) SARS-CoV-2 (PCR) Detected A (Not Detectd) 04/01/21 04/01/21 04/01/21 Range/Units 19:03 19:03 19:03 WBC (3.8-10.6) k/uL RBC (4.30-5.90) m/uL Hgb (13.0-17.5) gm/dL Hct (39.0-53.0) % MCV (80.0-100.0) fL MCH (25.0-35.0) pg MCHC (31.0-37.0) g/dL RDW (11.5-15.5) % Plt Count (150-450) k/uL MPV Neutrophils % % Lymphocytes % % Monocytes % % Eosinophils % % Basophils % % Neutrophils # (1.3-7.7) k/uL Lymphocytes # (1.0-4.8) k/uL Monocytes # (0-1.0) k/uL Eosinophils # (0-0.7) k/uL Basophils # (0-0.2) k/uL PT 19.3 H (9.0-12.0) sec INR 2.0 H (<1.2) APTT 31.5 H (22.0-30.0) sec Sodium (137-145) mmol/L Potassium (3.5-5.1) mmol/L Chloride (98-107) mmol/L Carbon Dioxide (22-30) mmol/L Anion Gap mmol/L BUN (9-20) mg/dL Creatinine (0.66-1.25) mg/dL Est GFR (CKD-EPI)AfAm (>60 ml/min/1.73 sqM) Est GFR (CKD-EPI)NonAf (>60 ml/min/1.73 sqM) Glucose (74-99) mg/dL Calcium (8.4-10.2) mg/dL Magnesium (1.6-2.3) mg/dL Total Bilirubin (0.2-1.3) mg/dL AST (17-59) U/L ALT (4-49) U/L Alkaline Phosphatase (38-126) U/L Troponin I 0.017 (0.000-0.034) ng/mL NT-Pro-B Natriuret Pep 656 pg/mL Total Protein (6.3-8.2) g/dL Albumin (3.5-5.0) g/dL Lipase (23-300) U/L Influenza Type A (PCR) (Not Detectd) Influenza Type B (PCR) (Not Detectd) RSV (PCR) (Not Detectd) SARS-CoV-2 (PCR) (Not Detectd) Disposition Clinical Impression: Coronavirus infection Disposition: HOME SELF-CARE Condition: Good Instructions (If sedation given, give patient instructions): Coronavirus Disease 2019 (COVID-19) Is patient prescribed a controlled substance at d/c from ED?: No Referrals: Carol Ahn MD [Primary Care Provider] - 1-2 days
[2021-04-01 19:26] LABS: Basophils % (A) 1 %; Eosinophils # (A) 0.2 k/uL (0-0.7); Eosinophils % (A) 4 %; HCT 54.8 % (39.0-53.0); HGB 17.9 gm/dL (13.0-17.5); Lymphocytes # (A) 0.9 k/uL (1.0-4.8); Lymphocytes % (A) 24 %; MCH 30.1 pg (25.0-35.0); MCHC 32.6 g/dL (31.0-37.0); MCV 92.2 fL (80.0-100.0); Mean Platelet Volume 7.7; Monocytes # (A) 0.4 k/uL (0-1.0); Monocytes % (A) 10 %; Neutrophils # (A) 2.3 k/uL (1.3-7.7); Neutrophils % (A) 60 %; Platelet Count 102 k/uL (150-450); RBC 5.94 m/uL (4.30-5.90); RDW 14.2 % (11.5-15.5); WBC 3.9 k/uL (3.8-10.6)
[2021-04-01 19:32] LABS: Albumin 3.7 g/dL (3.5-5.0); Calcium 9.5 mg/dL (8.4-10.2); Magnesium 1.8 mg/dL (1.6-2.3); Total Bilirubin 0.9 mg/dL (0.2-1.3); Total Protein 6.7 g/dL (6.3-8.2)
[2021-04-01 19:50] LABS: Partial Thromboplastin Time 31.5 sec (22.0-30.0); Prothrombin Time 19.3 sec (9.0-12.0)
--- NOTE | 2021-04-01 20:17 | XR ---
EXAMINATION TYPE: XR abdomen acute w cxr DATE OF EXAM: 04/01/2021 COMPARISON: NONE HISTORY: Abdominal pain TECHNIQUE: 4 views FINDINGS: Heart is normal. Lungs are clear of infiltrate. There is no heart failure. There are no hil ar masses. Costophrenic angles are clear. Bowel gas pattern is normal. There is no sign of intestinal obstruction or pneumoperitoneum. Fecal pa ttern is normal. There is no evidence of a mass. There are no pathologic calcifications over the kidn eys. There is electrical device over the right sacroiliac joint. IMPRESSION: Nonacute abdomen.
[2021-04-01] MEDS ORDERED: SODIUM CHLORIDE 0.9% 50 ML IVPB ONE (20:45)
[2021-04-01] MEDS ORDERED: CASIRIVIMAB/IMDEVIMAB (EUA) 1,200 MG in SODIUM CHLORIDE 0.9% 100 ML IVPB ONE (20:45)
[2021-04-02 00:18] VITALS: PULSE 74; RESP 16; TEMP 98.9
== END 2021-04-02 00:03 | disposition home or self-care (01) ==
LOC: EC 18:20
DX: U07.1 COVID-19 (principal); I11.0 Hypertensive heart disease with heart failure; I50.9 Heart failure, unspecified; J44.9 Chronic obstructive pulmonary disease, unspecified; E78.5 Hyperlipidemia, unspecified; F17.200 Nicotine dependence, unspecified, uncomplicated; I48.91 Unspecified atrial fibrillation; Z79.899 Other long term (current) drug therapy
CPT/HCPCS: 36415; 93005; 83880; 80053; 83690; 83735; 84484; 85025; 85610; 85730; 87636; 74022; 99285; 96365; 96361; Q0243

== ENCOUNTER 2021-05-25 11:53 | Emergency (ER) | payer MEDICARE ==
[2021-05-25 12:22] VITALS: TEMP 98.8
--- NOTE | 2021-05-25 13:57 | XR ---
EXAMINATION TYPE: XR KUB DATE OF EXAM: 05/25/2021 1:48 PM CLINICAL HISTORY: Constipation. TECHNIQUE: Two Upright KUB images of the abdomen are obtained. COMPARISON: Acute abdominal series April 01, 2021. FINDINGS: Evaluation slightly suboptimal due to patient's large body habitus. Entire abdomen and pelv is not included. Scattered gas seen in nondistended small bowel loops. Gas and fecal material seen in nondistended colon. Diabetes sugar monitor overlies the right pelvis similar to prior. Spurring and disc space narrowing lower lumbar levels redemonstrated. Moderate axial joint space loss both hips. T here is cardiomegaly otherwise lung bases are clear. IMPRESSION: Overall nonspecific strongly favor nonobstructive bowel gas pattern. No significant colonic fecal sta sis or constipation.
--- NOTE | 2021-05-25 14:32 | ED ---
General Adult HPI - General Chief complaint: Back Pain/Injury Stated complaint: can't sleep Time Seen by Provider: 05/25/21 13:29 Source: patient, RN notes reviewed, old records reviewed Mode of arrival: ambulatory Limitations: no limitations - History of Present Illness Initial comments: 71-year-old male presenting with 2 complaints. First complaint is insomnia. He's had difficulty sleeping, going to sleep and staying asleep. He is requesting medication to help him sleep. Additionally the patient is complaining of constipation stating that his last bowel movement was 2 days ago. He's had intermittent constipation and diarrhea for some time. He states that he was diagnosed with sleep apnea believes this may be the problem with his sleep and he has an appointment with the sleep clinic within the next one month. No chest pain or palpitations. No abdominal pain. No vomiting. No fever. - Related Data Home Medications Medication Instructions Recorded Confirmed Aspirin EC [Ecotrin Low Dose] 81 mg PO DAILY 02/04/21 02/25/21 Cholecalciferol [Vitamin D3 (25 25 mcg PO DAILY 02/04/21 02/25/21 Mcg = 1000 Iu)] Ferrous Sulfate [Feosol] 325 mg PO DAILY 02/04/21 02/25/21 Furosemide [Lasix] 40 mg PO DAILY 02/04/21 02/25/21 Insulin Glargine,Hum.rec.anlog 15 unit SQ DAILY 02/04/21 02/25/21 [Lantus Solostar] Insulin Lispro [humaLOG Kwikpen] 10 unit SQ AC-TID PRN 02/04/21 02/25/21 Potassium Chloride ER [K-Dur 10] 10 meq PO DAILY 02/04/21 02/25/21 Ramipril [Altace] 10 mg PO BID 02/04/21 02/25/21 Simvastatin [Zocor] 40 mg PO DAILY 02/04/21 02/25/21 Tamsulosin HCl [Flomax] 0.4 mg PO BID 02/04/21 02/25/21 Warfarin [Coumadin] 2.5 mg PO MOWEFR 02/04/21 02/25/21 Warfarin [Coumadin] 5 mg PO SUTUTHSA 02/04/21 02/25/21 amLODIPine [Norvasc] 10 mg PO DAILY 02/04/21 02/25/21 metFORMIN HCL [Glucophage] 850 mg PO BID 02/04/21 02/25/21 Metoprolol Succinate (ER) [Toprol 25 mg PO DAILY 02/25/21 02/25/21 Xl] Previous Rx's Medication Instructions Recorded Zolpidem [Ambien] 10 mg PO HS PRN 7 Days #7 tab 05/25/21 Allergies Allergy/AdvReac Type Severity Reaction Status Date / Time No Known Allergies Allergy Verified 05/25/21 12:22 Review of Systems ROS Statement: Those systems with pertinent positive or pertinent negative responses have been documented in the HPI. ROS Other: All systems not noted in ROS Statement are negative. Past Medical History Past Medical History: Atrial Fibrillation, Heart Failure, COPD, Hyperlipidemia, Hypertension History of Any Multi-Drug Resistant Organisms: None Reported Past Surgical History: Joint Replacement Past Psychological History: No Psychological Hx Reported Smoking Status: Current every day smoker Past Alcohol Use History: None Reported Past Drug Use History: None Reported General Exam Limitations: no limitations General appearance: alert, in no apparent distress Head exam: Present: atraumatic, normocephalic Eye exam: Present: normal appearance, PERRL ENT exam: Present: normal exam Neck exam: Present: normal inspection. Absent: tenderness, meningismus Respiratory exam: Present: normal lung sounds bilaterally. Absent: respiratory distress, wheezes Cardiovascular Exam: Present: regular rate, normal rhythm GI/Abdominal exam: Present: soft. Absent: distended, tenderness, guarding, rebound Extremities exam: Present: pedal edema (Chronic venous stasis) Neurological exam: Present: alert, oriented X3, CN II-XII intact. Absent: motor sensory deficit Psychiatric exam: Present: normal affect, normal mood Skin exam: Present: warm, dry, intact. Absent: cyanosis, diaphoretic Course Vital Signs 05/25/21 12:19 Temperature 98.8 F Pulse Rate 69 Respiratory 20 Rate Blood Pressure 174/75 O2 Sat by Pulse 95 Oximetry Medical Decision Making - Medical Decision Making 71-year-old male with 2 complaints, insomnia, and constipation. X-rays negative for obstruction or significant stool burden. I do recommend this patient follow with his primary care physician, he may require a colonoscopy. He is instructed to return the emergency department he were to develop abdominal pain, fever, or vomiting. Additionally the patient complained of insomnia and is requesting medication. He has an appointment with the sleep clinic within the next one month. He will follow-up with his primary care physician. Return parameters discussed. Disposition Clinical Impression: Insomnia Disposition: HOME SELF-CARE Condition: Fair Instructions (If sedation given, give patient instructions): Insomnia (ED), Sleep Apnea (DC) Prescriptions: Zolpidem [Ambien] 10 mg PO HS PRN 7 Days #7 tab PRN Reason: Insomnia Is patient prescribed a controlled substance at d/c from ED?: No Referrals: Carol Ahn MD [Primary Care Provider] - 1-2 days Time of Disposition: 14:31
[2021-05-25 14:42] VITALS: BP 129/72; PULSE 58; RESP 18
== END 2021-05-25 14:46 | disposition home or self-care (01) ==
LOC: EC 11:53
DX: G47.00 Insomnia, unspecified (principal); J44.9 Chronic obstructive pulmonary disease, unspecified; I11.0 Hypertensive heart disease with heart failure; I50.9 Heart failure, unspecified; E78.5 Hyperlipidemia, unspecified; I48.91 Unspecified atrial fibrillation; F17.200 Nicotine dependence, unspecified, uncomplicated; Z79.4 Long term (current) use of insulin; Z79.899 Other long term (current) drug therapy; Z79.84 Long term (current) use of oral hypoglycemic drugs; Z79.01 Long term (current) use of anticoagulants
CPT/HCPCS: 74018; 99284